=== PATIENT | female | born 1965 | race African-American/Black ===

== ENCOUNTER 2018-08-22 14:27 | Emergency (ER) | payer SELFPAY ==
[2018-08-22 15:09] LABS: Bilirubin Negative (Negative); Blood, Urine Trace (Negative); Clarity Clear (Clear); Glucose, Urine (Dipstick) Negative (Negative); Leukocyte Negative (Negative); Nitrite Negative (Negative); Protein, Urine (Dipstick) 30 mg/dL (Neg-Trace); Urobilinogen 0.2 mg/dL (0.2-1.0); pH, Urine 5.5 (5.0-9.0)
[2018-08-22] MEDS ORDERED: Acetaminophen 500 MG TAB ONE (15:14)
[2018-08-22 15:20] LABS: Bacteria/HPF Rare-Few HPF (None Seen); RBC/HPF 0-3 HPF (0-3); Squamous Epithelial 0-3 HPF (0-3); WBC/HPF 0-3 HPF (0-3)
--- NOTE | 2018-08-22 15:59 | RAD ---
CHEST 2 VIEWS: Date: 08/22/18 HISTORY: Productive cough. Fever. FINDINGS: No comparison. Cardiac silhouette and pulmonary vasculature are unremarkable. Mediastinum is midline. No confluent a ir space consolidation, pneumothorax, or pleural fluid are apparent. IMPRESSION: No active cardiopulmonary abnormalities are demonstrated. POS: [facility]
== END 2018-08-22 15:45 | disposition home or self-care (01) ==
LOC: NAV ERS 14:27
DX: J10.1 Influenza due to other identified influenza virus with other respiratory manifestations (principal); F17.210 Nicotine dependence, cigarettes, uncomplicated
CPT/HCPCS: 71046; 81003; 81015; 87086; 87804